=== PATIENT | female | born 2000 | race Caucasian/White ===

== ENCOUNTER 2018-06-24 17:59 | Emergency (ER) | payer OTHER ==
[~2018-06-24] VITALS: Ht 170.2 cm; Wt 134.1 kg
[2018-06-24] MEDS ORDERED: AUGM875T28 PO (19:59)
[2018-06-24] MEDS ORDERED: AUGMENTIN 875 MG TAB PO ONE (20:00)
[2018-06-24 20:07] VITALS: BP 123/66
== END 2018-06-24 20:12 | disposition home or self-care (01) ==
LOC: M ED 17:59
DX: S81.851A Open bite, right lower leg, initial encounter (principal); W55.01XA Bitten by cat, initial encounter; Y92.019 Unspecified place in single-family (private) house as the place of occurrence of the external cause

== ENCOUNTER 2018-12-20 12:04 | Emergency (ER) | payer OTHER ==
[~2018-12-20] VITALS: Ht 170.2 cm; Wt 112.9 kg
[2018-12-20 12:04] VITALS: BP 120/65
[~2018-12-20 12:04] MED LIST: AUGM875T28 PO
[2018-12-20] MEDS ORDERED: PRENTAB9 PO (12:16)
[2018-12-20] MEDS ORDERED: CALC500C16 PO (12:16)
[2018-12-20] MEDS ORDERED: OMEP-218 PO (12:16)
[2018-12-20 12:48] LABS: BASO % 0.3 % (0.0-1.0); EOS # 0.1 10^3/uL (0.0-0.50); EOS % 0.9 % (0.0-3.0); HEMATOCRIT 37.2 % (36.0-47.0); HEMOGLOBIN 12.6 g/dl (12.0-15.5); LYMPH # 2.6 10^3/uL (1.5-6.5); LYMPH % 32.7 % (24.0-44.0); MEAN CORPUSCULAR HEMOGLOBIN 29.1 pg (27.0-33.0); MEAN CORPUSCULAR HGB CONC 33.9 g/dl (32.0-36.5); MEAN CORPUSCULAR VOLUME 85.9 fl (80.0-96.0); MONO # 0.6 10^3/uL (0.0-0.8); MONO % 7.9 % (0.0-5.0); NEUTROPHILS # 4.6 10^3/uL (1.8-7.7); NEUTROPHILS % 57.8 % (36.0-66.0); PLATELET COUNT, AUTOMATED 220 10^3/uL (150-450); RED BLOOD COUNT 4.33 10^6/uL (4.00-5.40); WHITE BLOOD COUNT 7.9 10^3/uL (4.0-10.0)
[2018-12-20 13:17] LABS: ALBUMIN 3.8 GM/DL (3.2-5.2); ALT/SGPT 44 U/L (12-78); BILIRUBIN,DIRECT 0.2 MG/DL (0.0-0.2); BILIRUBIN,TOTAL 0.5 MG/DL (0.2-1.0); BLOOD UREA NITROGEN 7 MG/DL (7-18); CALCIUM LEVEL 9.2 MG/DL (8.5-10.1); CARBON DIOXIDE LEVEL 25 MEQ/L (21-32); CHLORIDE LEVEL 110 MEQ/L (98-107); CREATININE FOR GFR 0.63 MG/DL (0.55-1.30); GLUCOSE, FASTING 81 MG/DL (70-100); LIPASE 267 U/L (73-393); POTASSIUM SERUM 3.9 MEQ/L (3.5-5.1); SODIUM LEVEL 143 MEQ/L (136-145); TOTAL PROTEIN 7.1 GM/DL (6.4-8.2)
[2018-12-20] MEDS ORDERED: ISOVUE-370 76% 100ML VIAL (Q9967) As Ordered ONE (13:28)
[2018-12-20 13:29] LABS: HCG, SERUM QUALITATIVE NEGATIVE (NEGATIVE)
--- NOTE | 2018-12-20 13:50 | REP ---
Clinical: Trauma with right-sided abdominal pain. Technique: Axial contrast enhanced images from the lung bases to the pubic symphysis using 100 ml Isovue 370 intravenous contrast material with coronal and sagittal re-formations. Findings: Lung bases are clear. Visualized heart and pericardium normal. No evidence for solid organ injury. Liver, spleen, pancreas, gallbladder, bilateral adrenal glands and kidneys are normal. Evidence of prior bariatric surgery. Small and large bowel is without obstruction or acute inflammatory process. Normal terminal ileum and appendix identified in the right lower quadrant. Pelvis demonstrates normal bladder and age-appropriate uterus/adnexa. No pelvic fluid or ascites. No free air. No adenopathy. Abdominal aorta and vasculature normal. Musculoskeletal structures without focal osseous abnormality. Impression: No no evidence for acute trauma/injury. No acute abdominopelvic pathology. Electronically Signed by Sage Ballard MD 12/20/2018 01:42 P
--- NOTE | 2018-12-20 14:01 | REP ---
Clinical: Trauma. Technique: AP, lateral, bilateral oblique views right wrist . Findings: The carpal bones, surrounding osseous structures, soft tissues, and joint spaces are normal. There is no evidence for acute fracture or dislocation. No subcutaneous emphysema or radiodense foreign body. Impression: No acute fracture or dislocation Electronically Signed by Sage Ballard MD 12/20/2018 01:53 P
--- NOTE | 2018-12-20 14:02 | REP ---
Clinical: Trauma. Technique: AP, lateral, bilateral oblique views right hand . Findings: The osseous structures and joint spaces are intact and normal. There is no evidence for acute fracture or dislocation. Surrounding soft tissues are unremarkable. No subcutaneous emphysema or radiodense foreign body. Impression: No acute fracture or dislocation. Electronically Signed by Sage Ballard MD 12/20/2018 01:54 P
--- NOTE | 2018-12-20 14:03 | REP ---
Clinical: Trauma. Technique: AP and lateral views of the right forearm. Findings: No acute fracture or dislocation. Surrounding soft tissues are normal. Impression: No acute fracture or dislocation. Electronically Signed by Sage Ballard MD 12/20/2018 01:55 P
== END 2018-12-20 14:43 | disposition home or self-care (01) ==
LOC: M ED 12:04
DX: S63.501A Unspecified sprain of right wrist, initial encounter (principal); W10.9XXA Fall (on) (from) unspecified stairs and steps, initial encounter; Y92.9 Unspecified place or not applicable; Y93.9 Activity, unspecified; Y99.9 Unspecified external cause status; Z98.84 Bariatric surgery status; Z79.899 Other long term (current) drug therapy
CPT/HCPCS: 73090; 73110; 73130; 74177; 80048; 80076; 83690; 84703; 85025; 99284; Q9967

== ENCOUNTER 2019-04-02 19:53 | Observation (INO) | payer OTHER ==
[~2019-04-02] VITALS: Ht 170.2 cm; Wt 93.8 kg
[~2019-04-02 19:53] MED LIST changes: +CALC500C16 PO; +OMEP-218 PO; +PRENTAB9 PO
[2019-04-02 20:19] LABS: BASO % 0.3 % (0.0-1.0); EOS % 0.1 % (0.0-3.0); HEMATOCRIT 41.1 % (36.0-47.0); LYMPH # 0.9 10^3/uL (1.5-5.0); MEAN CORPUSCULAR HEMOGLOBIN 30.6 pg (27.0-33.0); MEAN CORPUSCULAR HGB CONC 34.1 g/dl (32.0-36.5); MEAN CORPUSCULAR VOLUME 89.7 fl (80.0-96.0); MONO # 0.5 10^3/uL (0.0-0.8); MONO % 5.9 % (0.0-5.0); NEUTROPHILS # 6.4 10^3/uL (1.5-8.5); NEUTROPHILS % 81.3 % (36.0-66.0); PLATELET COUNT, AUTOMATED 228 10^3/uL (150-450); RED BLOOD COUNT 4.58 10^6/uL (4.00-5.40); WHITE BLOOD COUNT 7.9 10^3/uL (4.0-10.0)
[2019-04-02] MEDS ORDERED: GI COCKTAIL 50ML BTL(HYOSCYAMINE/MAALOX/LIDOCAINE VISCOUS)(1:3:1) PO ONE (20:45)
[2019-04-02 20:53] LABS: ALBUMIN 4.2 GM/DL (3.2-5.2); ALT/SGPT 144 U/L (12-78); BILIRUBIN,DIRECT 1.4 MG/DL (0.0-0.2); BILIRUBIN,TOTAL 2.6 MG/DL (0.2-1.0); BLOOD UREA NITROGEN 8 MG/DL (7-18); CALCIUM LEVEL 9.8 MG/DL (8.5-10.1); CARBON DIOXIDE LEVEL 26 MEQ/L (21-32); CHLORIDE LEVEL 108 MEQ/L (98-107); CREATININE FOR GFR 0.83 MG/DL (0.55-1.30); GLUCOSE, FASTING 96 MG/DL (70-100); LIPASE 181 U/L (73-393); POTASSIUM SERUM 4.3 MEQ/L (3.5-5.1); SODIUM LEVEL 142 MEQ/L (136-145); TOTAL PROTEIN 7.5 GM/DL (6.4-8.2)
[2019-04-02] MEDS ORDERED: ISOVUE-370 76% 100ML VIAL (Q9967) As Ordered ONE (21:00)
[2019-04-02] MEDS ORDERED: NS 1,000 ML IV ONE (21:30)
--- NOTE | 2019-04-02 21:59 | REPVR ---
PROCEDURE INFORMATION: Exam: US Abdomen Limited, Right Upper Quadrant Exam date and time: 04/02/2019 9:31 PM Clinical history: 18 years old, female; Abdominal pain; Epigastric; Additional info: Ruq/epigastric pain TECHNIQUE: Imaging protocol: Real-time ultrasound of the abdomen with image documentation. Examination was focused on the right upper quadrant. COMPARISON: CT ABD PELVIS WITH CONTRAST 04/02/2019 9:17 PM FINDINGS: Liver: The liver demonstrates no focal defects. Gallbladder: The gallbladder demonstrates small stones and sludge. There is no wall thickening measuring 2-3 mm but mild distention. There is a positive sono Hidalgo's sign. Common bile duct: The CBD measures 2-3 mm. Pancreas: Limited visualization of the pancreatic body demonstrates no abnormality. The remainder is obscured by gas shadowing. Right kidney: The right kidney is normal with no hydronephrosis and measures 12.6 cm. IMPRESSION: Gallbladder sludge and small stones with slight gallbladder distention. There is no gallbladder wall thickening, however, there is a positive sono Hidalgo's sign. Electronically signed by: Elvin Issa On 04/02/2019 21:58:32 PM
--- NOTE | 2019-04-02 22:05 | REPVR ---
PROCEDURE INFORMATION: Exam: CT Abdomen And Pelvis With Contrast Exam date and time: 04/02/2019 9:19 PM Clinical history: 18 years old, female; Abdominal pain; Generalized; Additional info: Abd pain x2 weeks TECHNIQUE: Imaging protocol: Computed tomography of the abdomen and pelvis with intravenous contrast. Radiation optimization: All CT scans at this facility use at least one of these dose optimization techniques: automated exposure control; mA and/or kV adjustment per patient size (includes targeted exams where dose is matched to clinical indication); or iterative reconstruction. Contrast material: ISOVUE 370; Contrast volume: 100 ml; Contrast route: IV; COMPARISON: CT ABD/PEL W/IV CONTRAST ONLY 12/20/2018 1:31 PM FINDINGS: Liver: The liver attenuation is 76 Hounsfield units and the spleen is 123 Hounsfield units. The liver at mid clavicular line measures 16.5 cm. Gallbladder and bile ducts: The gallbladder measures 3.8 cm in diameter. Pancreas: Normal. No ductal dilation. Spleen: Normal. No splenomegaly. Adrenals: Normal. No mass. Kidneys and ureters: Normal. No hydronephrosis. Stomach and bowel: Status post gastric sleeve. Appendix: A normal appendix is seen extending along the right lateral pelvic sidewall. Intraperitoneal space: Unremarkable. No free air. No significant fluid collection. Vasculature: Unremarkable. No abdominal aortic aneurysm. Lymph nodes: Unremarkable. No enlarged lymph nodes. Bladder: Unremarkable as visualized. Reproductive: There is an IUD in the uterus. Bones/joints: Schmorl's defect in superior endplate of L4. Soft tissues: Unremarkable. IMPRESSION: 1. There has been little change from 12/20/2018. No acute interval process is identified. 2. Borderline hepatomegaly with fatty infiltration. 3. Status post gastric sleeve. 4. Interval IUD in the uterus since the prior study. Electronically signed by: Elvin Issa On 04/02/2019 22:04:58 PM
[2019-04-03] MEDS ORDERED: ACETAMINOPHEN TAB 650MG DOSE (2X325MG) PO PRN
[2019-04-03] MEDS ORDERED: ONDANSETRON 4MG/2ML VIAL (J2405) IV PRN
[2019-04-03] MEDS ORDERED: KETOROLAC 30 MG/ML VIAL (J1885) IV PRN
--- NOTE | 2019-04-03 00:13 | CR ---
DATE OF CONSULTATION: 04/02/2019 CONSULTATION FOR: The Emergency Department. REASON FOR CONSULTATION: Abdominal pain with gallstones and elevated liver function tests. HISTORY OF PRESENT ILLNESS: The patient is a 18-year-old woman who presented to the emergency department complaining of upper abdominal pain with some nausea and vomiting. The patient reports that several times she had noticed similar pains that were of shorter duration. These occurred a few weeks ago and would last as long as perhaps an hour. She did notice some associated nausea and vomiting. She reports that she had some mild discomfort yesterday, April 01, 2019, in the evening but it was not significant. This morning at about 10 o'clock in the morning, she noticed more severe pain, high in the epigastrium radiating up into her lower chest. She reported some nausea and vomiting. The pain was severe at times but waxed and waned. She presented to the emergency department at almost 8 o'clock in the evening of April 02, 2019. She was found to have some tenderness in the epigastrium and right subcostal area. Laboratory studies showed elevated liver function tests. She had a gallbladder ultrasound obtained and a CT scan of the abdomen and pelvis. The CT scan of the abdomen and pelvis showed evidence for some fatty infiltration of the liver. She is status post a sleeve gastrectomy. An intrauterine device (IUD) was noted in the uterus. Her gallbladder ultrasound showed small stones and sludge with no gallbladder wall thickening. There was a suggestion of some gallbladder distension. She did have some tenderness on scanning over the gallbladder. She continues to have some discomfort though it is less than it had been. I was consulted to evaluate the patient regarding her gallbladder issues. ALLERGIES: The patient denies any medication allergies. MEDICATIONS: The patient reports that she is not taking any medications currently. SURGICAL HISTORY: The patient in September of 2018 underwent a sleeve gastrectomy and has apparently had a weight loss of about 90 pounds. She has had an IUD inserted fairly recently. She denies any other surgical procedures. MEDICAL HISTORY: Significant for obesity, which was treated by sleeve gastrectomy in September. She denies any active medical problems at this time. FAMILY HISTORY: Shows no family history of liver or gallbladder disease. SOCIAL HISTORY: The patient reports that she is not currently working. She denies any tobacco use or alcohol use. She is and has no children. REVIEW OF SYSTEMS: Reveals no history of chest pain or palpitations or other cardiac issues. She denies any cough, wheezing or sputum production. She has no history of pancreatitis or hepatitis. She denies dysuria or hematuria. She denies any other gastrointestinal (GI) symptoms. She has no history of deep vein thrombosis (DVT) or pulmonary embolus. She has no bone or joint issues. There is no history of seizure or stroke. PHYSICAL EXAMINATION: Reveals a mildly obese, young, slightly pale-appearing woman lying quietly on the hospital stretcher. When I came into the room, she immediately sat up on the side of the bed without obvious discomfort. Skin is warm and dry. Sclerae are anicteric. Mucous membranes are tacky and moist. The neck is supple without mass or bruit. Heart: Exam shows a regular rhythm and she is not tachycardiac. The lungs are clear. The abdomen is flat. She has a number of small scars in the upper abdomen consistent with her prior laparoscopic surgery. She has some bowel sounds present. There is some mild tenderness to percussion high in the epigastrium and in the medial aspect of the right subcostal area. On palpation, she has some mild to moderate direct tenderness in the epigastrium and in the medial aspect of the right subcostal area. There is no mass appreciated. There is no evident hernia. She has palpable radial and pedal pulses. There is no peripheral edema. Laboratory studies include a CBC that shows a white count of 8, hemoglobin 14, hematocrit of 41 and a platelet count of 228,000. Differential count shows 81% neutrophils, 12% lymphocytes and 6% monocytes. Chemistry profile shows a sodium of 142, potassium 4.3, chloride 108, CO2 of 26, BUN of 8, creatinine 0.8 and a glucose of 96. Total bilirubin is 2.6 with a direct of 1.4. AST is 167, ALT 144, and alkaline phosphatase 139. Her lipase is normal at 181. Urinalysis shows celeste-colored urine with a specific gravity of 1.025. Dipstick shows 1+ protein, trace of ketones and 1+ bilirubin with a urine urobilinogen of 4.0. Hepatitis panel was ordered. IMPRESSION: The patient has gallstones and sludge by ultrasound. She has pain that has been present for 12 hours at least and has elevation of her liver function tests. Overall I think her history and findings are most consistent with passage of stones into the common bile duct with some bile duct obstruction leading to elevation of her liver function tests. She does not have evidence of pancreatitis at this point. RECOMMENDATIONS: I recommended to the patient that she be admitted to the hospital for close monitoring. She should have her liver function tests rechecked in the morning. If they return to normal rapidly, then it may be that she has passed some small stones, and we could proceed directly to cholecystectomy in the near future. If her liver function tests continue to rise or remain elevated, then an magnetic resonance cholangiopancreatography (MRCP) may help delineate the presence of common bile duct stones, although an endoscopic retrograde cholangiopancreatography (ERCP) may be prudent to address her presumed stones and prevent further problems in the near term. I discussed this with the patient and an accompanying family member, and her initial reaction was that she did not want to stay in the hospital and she was planning on going home. I left her to think about this, and we will see whether she is agreeable with the plan, or chooses to go home. ZAKIA
[2019-04-03] MEDS ORDERED: MIRE1IUD IU (00:36)
[2019-04-03 01:53] VITALS: BP 106/55
[2019-04-03] MEDS: LR 1,000 ML IV SCH ×2 (01:58→19:54)
[2019-04-03 06:14] VITALS: BP 102/60
[2019-04-03 09:58] LABS: HEPATITIS B SURFACE ANTIGEN NEGATIVE (NEGATIVE)
[2019-04-03 10:00] VITALS: BP 100/62
[2019-04-03 10:17] LABS: BASO % 0.4 % (0.0-1.0); EOS % 0.8 % (0.0-3.0); HEMATOCRIT 37.7 % (36.0-47.0); HEMOGLOBIN 12.1 g/dl (12.0-15.5); LYMPH # 1.4 10^3/uL (1.5-5.0); LYMPH % 29.7 % (24.0-44.0); MEAN CORPUSCULAR HEMOGLOBIN 29.7 pg (27.0-33.0); MEAN CORPUSCULAR HGB CONC 32.1 g/dl (32.0-36.5); MEAN CORPUSCULAR VOLUME 92.4 fl (80.0-96.0); MONO # 0.5 10^3/uL (0.0-0.8); NEUTROPHILS # 2.8 10^3/uL (1.5-8.5); NEUTROPHILS % 59.1 % (36.0-66.0); PLATELET COUNT, AUTOMATED 167 10^3/uL (150-450); RED BLOOD COUNT 4.08 10^6/uL (4.00-5.40); WHITE BLOOD COUNT 4.7 10^3/uL (4.0-10.0)
[2019-04-03 10:25] LABS: HEPATITIS B CORE ANTIBODY IGM NEGATIVE (NEGATIVE)
[2019-04-03 10:28] LABS: HEPATITIS A ANTIBODY IGM NEGATIVE (NEGATIVE)
[2019-04-03 10:48] LABS: ALBUMIN 3.4 GM/DL (3.2-5.2); BILIRUBIN,DIRECT 1.1 MG/DL (0.0-0.2); BILIRUBIN,TOTAL 2.6 MG/DL (0.2-1.0); TOTAL PROTEIN 6.6 GM/DL (6.4-8.2)
[2019-04-03 14:00] VITALS: BP 111/59
--- NOTE | 2019-04-03 18:24 | IPN ---
DATE: 04/03/2019 HISTORY: The patient was admitted last night or even early this morning with upper abdominal pain with elevated liver function tests and an ultrasound showing multiple small gallstones and a distended gallbladder. Her history is consistent with common bile duct stones with at least a partial obstruction of the common duct. She consented to be placed on observation overnight to recheck her labs this morning. She has been somewhat reluctant to stay in the hospital, indicating that she has to go take care of the dogs at her home. She reports that she has less discomfort this morning. Vital signs show that she has been afebrile. Her pulses in the 50s to mid 70s. Blood pressure is normal. Intake and output shows that she has had 1400 intravenous (IV) fluid in. She has voided, though this was not recorded volume-duran. PHYSICAL EXAMINATION: The patient moves easily without obvious discomfort. Heart exam shows a regular rhythm, and the lungs are clear. The abdomen is flat. She has bowel sounds present. There is some minimal tenderness in the epigastrium, which is clearly less than last evening. Laboratory studies this morning show that her white count is 5 with a hemoglobin of 12, hematocrit of 38, and platelet count of 167,000. Differential count today was normal. where as yesterday she had an elevation of the neutrophils 81%. Chemistry profile shows that her total bilirubin is still 2.6 with a direct of 1.1. The AST is 181, ALT is 168, and the alkaline phosphatase is 119, and these are all very similar to last evening's numbers. IMPRESSION: Probable persistent common bile duct stones with partial common bile duct obstruction. PLAN: I discussed with the patient my recommendation that she remain for continued evaluation and treatment as necessary. She still indicates that she would like to go home, but I counseled her that there is the potential for serious problems from common bile duct stones. She consented to remain at least for part of the day to continue her evaluation. I spoke with Dr. Neil Conklin of gastroenterology, and we agreed to proceed with an magnetic resonance cholangiopancreatography (MRCP). If this shows no definite filling defect or ductal distension, then we agreed it would be reasonable to consider discharging her to followup on an outpatient basis to follow her liver function tests. Ultimately, I have recommended to her that she have her gallbladder removed. ZAKIA
--- NOTE | 2019-04-03 18:34 | REP ---
MRCP exam: MRI abdomen without contrast: History: Gallstones. Elevated LFTs. Comparison sonography April 02, 2019 showed small gallstones and sludge and gallbladder distension. Comparison CT study April 02, 2019. Technique: Axial and coronal T2-weighted scans were obtained. MRCP is acquired and maximal intensity projection images are generated and reviewed rotationally. MRCP findings: There are innumerable tiny gallstones layering in the dependent portion the gallbladder. There is mild pericholecystic fluid. The gallbladder is somewhat distended measuring up to 9.0 cm in diameter. The common bile duct is mildly dilated up to 10 mm in size. It contains numerous tiny stones within its lumen extending a nearly to the marshall. No intrahepatic ductal dilation is observed. No pancreatic ductal dilation is seen. No pancreatic mass lesion is observed. Exam is otherwise unremarkable. Impression: Cholelithiasis and choledocholithiasis with innumerable tiny calculi stacked up within the common bile duct and within the lumen of the gallbladder. The common bile duct is mildly dilated, 10 mm. Electronically Signed by Rafa Muñiz MD 04/03/2019 06:46 P
[2019-04-03 20:00] VITALS: BP 118/62
[2019-04-04] VITALS: BP 117/69
[2019-04-04] MEDS: LR 1,000 ML IV SCH ×3 (02:09→17:56)
[2019-04-04 04:45] VITALS: BP 123/65
[2019-04-04 10:00] VITALS: BP 118/63
--- NOTE | 2019-04-04 11:04 | IPNPDOC ---
Text Note Date of Service The patient was seen on 04/04/19. NOTE No acute events overnight. MRCP showed a CBD full of stones. Katerin is planning on ERCP this afternoon. She wants to go home right after that is done. No problems with nausea, emesis, fevers, or pains. VSSAF NAD abd - soft, nt, nd A) 18y/o female with choledocholithiasis P) NPO ERCP today d/c either tonight or in the AM pending GI approval. f/u with Dr. Hung outpatient to schedule elective cholecystectomy. Joao Marrero DO VS,Fishbone, I+O VS, Fishbone, I+O Vital Signs Date Time Temp Pulse Resp B/P (MAP) Pulse Ox O2 Delivery O2 Flow Rate FiO2 04/04/19 10:00 98.1 50 16 118/63 (81) 99 Room Air I&O- Last 24 Hours up to 6 AM 04/04/19 06:00 Intake Total 1900 ml Output Total 300 ml Balance 1600 ml LIU MARRERO DO Apr 04, 2019 11:04
[2019-04-04 14:00] VITALS: BP 112/57
[2019-04-04 18:00] VITALS: BP 108/60
[2019-04-04 20:00] VITALS: BP 101/53
[2019-04-05] VITALS: BP 114/63
[2019-04-05] MEDS: LR 1,000 ML IV SCH (01:36)
[2019-04-05 04:00] VITALS: BP 121/85
[2019-04-05 07:19] LABS: HEMOGLOBIN 12.5 g/dl (12.0-15.5); MEAN CORPUSCULAR HGB CONC 32.9 g/dl (32.0-36.5); MEAN CORPUSCULAR VOLUME 91.1 fl (80.0-96.0); PLATELET COUNT, AUTOMATED 145 10^3/uL (150-450); RED BLOOD COUNT 4.17 10^6/uL (4.00-5.40); WHITE BLOOD COUNT 4.6 10^3/uL (4.0-10.0)
[2019-04-05 07:44] LABS: ALBUMIN 3.2 GM/DL (3.2-5.2); ALT/SGPT 286 U/L (12-78); BILIRUBIN,TOTAL 2.9 MG/DL (0.2-1.0); BLOOD UREA NITROGEN 4 MG/DL (7-18); CALCIUM LEVEL 9.2 MG/DL (8.5-10.1); CARBON DIOXIDE LEVEL 28 MEQ/L (21-32); CHLORIDE LEVEL 106 MEQ/L (98-107); CREATININE FOR GFR 0.66 MG/DL (0.55-1.30); GLUCOSE, FASTING 79 MG/DL (70-100); LIPASE 209 U/L (73-393); POTASSIUM SERUM 4.1 MEQ/L (3.5-5.1); SODIUM LEVEL 139 MEQ/L (136-145); TOTAL PROTEIN 6.3 GM/DL (6.4-8.2)
[2019-04-05] MEDS ORDERED: dexameTHASONE 4 MG/ML 1ML VIAL (J1100) As Ordered ONE (11:43)
[2019-04-05] MEDS ORDERED: PROPOFOL 200 MG/20 ML VIAL As Ordered ONE (11:43)
[2019-04-05] MEDS ORDERED: ONDANSETRON 4MG/2ML VIAL (J2405) As Ordered ONE (11:43)
[2019-04-05] MEDS ORDERED: SUGAMMADEX SODIUM 500 MG/5 ML VIAL (BRIDION) As Ordered ONE (11:43)
[2019-04-05] MEDS ORDERED: LIDOCAINE 2% INJ 100 MG/5 ML SDV (FOR ANES.) As Ordered ONE (11:43)
[2019-04-05] MEDS ORDERED: MIDAZOLAM INJ 2 MG/2 ML VIAL (J2250) As Ordered ONE (11:43)
[2019-04-05] MEDS ORDERED: fentaNYL 100 MCG/2 ML INJECTION (J3010) As Ordered ONE (11:43)
[2019-04-05] MEDS ORDERED: ROCURONIUM BROMIDE 50 MG/5 ML VIAL As Ordered ONE (11:43)
[2019-04-05] MEDS ORDERED: METOCLOPRAMIDE INJ 10MG/2ML VIAL (J2765) As Ordered ONE (11:43)
[2019-04-05] MEDS ORDERED: ISOVUE-300 61% 50ML VIAL (Q9967) As Ordered ONE (11:46)
[2019-04-05] MEDS ORDERED: GLYCOPYRROLATE INJ 0.2 MG/ML 2 ML VIAL As Ordered ONE (12:10)
[2019-04-05] MEDS ORDERED: NEOSTIGMINE 10 MG/10 ML VIAL (J2710) As Ordered ONE (12:10)
--- NOTE | 2019-04-05 12:12 | CR ---
DATE OF CONSULTATION: 04/04/2019 This is a 18-year-old white female who has seen in consultation for Dr. Snyder for evaluation of abnormal imaging test and liver function tests suggestive for choledocholithiasis. The patient is a 18-year-old female with epigastric and upper abdominal pain with nausea and vomiting. She has had some mild discomfort since April 01. No apparent fevers, night sweats or shaking chills. The patient has had laboratory studies which were consistent with possible common bile duct stone. PAST MEDICAL HISTORY: Positive for some obesity which the patient has had a sleeve gastrectomy in September. FAMILY HISTORY: Noncontributory. SOCIAL HISTORY: Cigarettes, alcohol, drugs negative. REVIEW OF SYSTEMS: Noncontributory. Well-developed, well-nourished slightly obese white female in no acute distress. Stated age. Chest is clear to auscultation. Cardiovascular exam showed regular rhythm. No murmurs or gallops. Normal physiological split. S1, S2. Abdomen: Soft, nontender. No masses, guarding, rebound, hepatosplenomegaly. Bowel sounds positive. Extremities: No cyanosis, clubbing, edema. Dianna's negative. LABORATORY STUDIES: On admission showed a white count 7900, hemoglobin and hematocrit of 14 and 41. The patient's chemistry showed a total bilirubin of 2.6, AST 167, ALT of 144, alkaline phosphatase was 139. Albumin is 4.2 and lipase of 41. The patient is not . Repeat liver functions on April 03 showed bilirubin 2.6, alkaline phosphatase was 119, AST was 181 and ALT was 168. The patient had negative serology studies. Imaging tests including an ultrasound of the gallbladder showed sludge and small stones, slight gallbladder distension. No wall thickening. The patient had positive Hidalgo sign. The patient's abdominal CT showed borderline hepatomegaly with fatty liver and status post gastric sleeve. The patient had MRCP which showed cholelithiasis and choledocholithiasis with innumerable tiny calculi stacked up within the common bile duct. Bile duct was slightly dilated 10 mm. ANALYSIS: 1. Choledocholithiasis and cholelithiasis and abnormal liver functions and right upper quadrant pain. Plan will be to set the patient up for an ERCP, papillotomy and balloon sweep to clear out the biliary tract stones. PLAN: 1. As above. 2. Informed consent has been given.
--- NOTE | 2019-04-05 12:32 | ROOR ---
Patient Name: Karen Bauer Procedure Date: 04/05/2019 11:50 AM Date of : 2000 Age: 18 Room: Main OR Gender: Female Note Status: Finalized Procedure: ERCP + Papillotomy + Balloon Sweep Indications: Abdominal pain of suspected biliary origin, Abnormal MRCP, Elevated liver enzymes Providers: Neil Conklin MD Referring MD: 2. Inpatient 2. Inpatient Requesting Provider: Medicines: General Anesthesia Complications: No immediate complications. Procedure: Pre-Anesthesia Assessment: - The heart rate, respiratory rate, oxygen saturations, blood pressure, adequacy of pulmonary ventilation, and response to care were monitored throughout the procedure. The Duodenoscope was introduced through the mouth, and advanced to the duodenum and used to inject contrast into the bile duct. The ERCP was accomplished without difficulty. The patient tolerated the procedure well. Findings: The upper GI tract was traversed under direct vision without detailed examination. The major papilla was normal. The bile duct was deeply cannulated with the short-nosed traction sphincterotome. Contrast was injected. I personally interpreted the bile duct images. Ductal flow of contrast was adequate. Image quality was adequate. Contrast extended to the entire biliary tree. Opacification of the entire biliary tree was seen. The main bile duct contained multiple stones. The entire biliary tree was mildly dilated, acquired. A short 0.035 inch Soft Jagwire was passed into the biliary tree. Biliary sphincterotomy was made with a monofilament traction (standard) sphincterotome using ERBE electrocautery. There was no post-sphincterotomy bleeding. The biliary tree was swept with a 12 mm balloon starting at the bifurcation. Sludge was swept from the duct. All stones were removed. Impression: - The entire biliary tree was mildly dilated, acquired. - Choledocholithiasis was found. Complete removal was accomplished by biliary sphincterotomy and balloon extraction. - A biliary sphincterotomy was performed. - The biliary tree was swept. - The examination was otherwise normal. Recommendation: - Avoid aspirin and nonsteroidal anti-inflammatory medicines for 10 days. - Return patient to hospital [facility] for ongoing care. - Continue present medications. - Watch for pancreatitis, bleeding, perforation, and cholangitis. - The findings and recommendations were discussed with the surgeon. - The findings and recommendations were discussed with the patient. Neil Conklin MD Neil Conklin MD 04/05/2019 12:32:15 PM Electronically signed by Neil Conklin MD Number of Addenda: 0 Note Initiated On: 04/05/2019 11:50 AM Estimated Blood Loss: Estimated blood loss: none.
[2019-04-05 13:05] VITALS: BP 125/95
[2019-04-05 13:35] VITALS: BP 125/74
[2019-04-05 14:35] VITALS: BP 132/91
--- NOTE | 2019-04-06 06:40 | REP ---
ERCP: Nine views. History: ERCP. 1 minute 42 seconds of fluoroscopy time is reported. Findings: A sequence of nine last image hold fluoroscopically obtained spot radiographs of the upper abdomen document endoscopic cannulation and contrast injection of the common bile duct. A balloon catheter was placed. Electronically Signed by Rafa Muñiz MD 04/06/2019 08:34 A
== END 2019-04-05 15:30 | disposition home or self-care (01) ==
LOC: M ED 19:53 → M ED INP 19:54 → M MS4PR 04-03 01:45
PROVIDERS: ADMIT Surgery; ATTEND Surgery
DX: K80.50 Calculus of bile duct without cholangitis or cholecystitis without obstruction (principal); R10.9 Unspecified abdominal pain; R74.8 Abnormal levels of other serum enzymes; K83.8 Other specified diseases of biliary tract; R93.2 Abnormal findings on diagnostic imaging of liver and biliary tract; Z98.84 Bariatric surgery status; E66.9 Obesity, unspecified
CPT/HCPCS: 36415; 43262; 43264; 74177; 74181; 76000; 76705; 80048; 80053; 80076; 81001; 83690; 84702; 85025; 85027; 86705; 86709; 86803; 87340; 96361; 96374; 99284; J1100; J1885; J2250; J2405; J2710; J2765; J3010; Q9967